=== PATIENT | female | born 1960 | race Caucasian/White ===

== ENCOUNTER → 2017-07-11 04:59 | Emergency (ER) | payer MEDICARE ==
[2017-07-11 05:57] LABS: ABS Basophils 0.1 10^3/ul (0-0.2); ABS Eosinophils 0.2 10^3/ul (0-0.6); ABS Lymphocytes 2.5 10^3/ul (1.0-4.8); ABS Monocytes 0.5 10^3/ul (0-0.8); ABS Neutrophils 3.8 10^3/ul (1.5-7.7); ABS Nucleated RBC 0 10^3/ul; Eosinophil % 2.6 % (0-6); Hematocrit 36 % (35-47); Hemoglobin 12.1 g/dl (12.0-16.0); Lymphocyte % 35.1 % (25-47); Mean Corpuscular HGB Conc 34 g/dl (31-36); Mean Corpuscular Hemoglobin 30 pg (27-31); Mean Corpuscular Volume 87 fL (80-97); Mean Platelet Volume 8.2 um3 (7.4-10.4); Nucleated Red Blood Cells % 0.1; Platelet Count 272 10^3/ul (150-450); Red Blood Count 4.07 10^6/ul (4.0-5.4); Red Cell Distribution Width 14 % (10.5-15)
[2017-07-11 06:19] LABS: EGFR Non-African American 104.3 (>60)
--- NOTE | 2017-07-11 08:23 | RAD ---
HISTORY: Chest pain COMPARISONS: July 01, 2015 VIEWS: 4: Frontal dual-energy and lateral views of the chest. FINDINGS: CARDIOMEDIASTINAL SILHOUETTE: The cardiomediastinal silhouette is normal. ITZEL: The itzel are normal. PLEURA: There is elevation of the right hemidiaphragm. This can be identified on earlier examinations and is stable. LUNG PARENCHYMA: The lungs are clear. ABDOMEN: The upper abdomen is clear. There is no subphrenic gas. BONES AND SOFT TISSUES: No bone or soft tissue abnormalities are noted. OTHER: A left-sided AICD is noted. IMPRESSION: STABLE ELEVATION OF THE RIGHT HEMIDIAPHRAGM. NO ACTIVE CARDIOPULMONARY DISEASE.
[2017-07-11 12:33] VITALS: BP 116/70
--- NOTE | 2017-07-13 21:20 | ED ---
Carlos Stiles Sixian, scribed for Kwabena Childers MD on 07/11/17 at 0530 . Shortness of Breath - HPI Summary HPI Summary: This patient is a 57 year old F BIBA to ED with a chief complaint of SOB since 0200 today. The patient rates the pain 5/10 in severity. Symptoms aggravated and alleviated by nothing. Patient reports chest pressure. Patient denies nausea , dizziness, abdominal pain. Pt had taken x2 nitro at home without any relief. EMS administered 324mg ASA. - History of Current Complaint Chief Complaint: EDChestPainROMI Time Seen by Provider: 07/11/17 05:22 Hx Obtained From: Patient Onset/Duration: Gradual Onset, Lasting Hours, Still Present Timing: Constant Current Severity: Moderate - 5/10 Alleviating Factors: Nothing Associated Signs & Symptoms: Chest Pain Unrelated to Cough - Allergy/Home Medications Allergies/Adverse Reactions: Allergies Allergy/AdvReac Type Severity Reaction Status Date / Time morphine Allergy Hallucinati Verified 07/11/17 05:28 ons Home Medications: Home Medications Cyanocobalamin TAB* [Vitamin B12 TAB*] 500 mcg PO DAILY 07/11/17 [History Confirmed 07/11/17] PMH/Surg Hx/FS Hx/Imm Hx Endocrine/Hematology History: Denies: Hx Diabetes Cardiovascular History: Reports: Hx Angina, Hx Auto Implanted Cardiovert Defib, Hx Coronary Artery Disease, Hx Hypercholesterolemia, Hx Hypertension, Hx Myocardial Infarction, Hx Pacemaker/ICD, Hx Syncope History: Denies: Hx Renal Disease Musculoskeletal History: Reports: Hx Back Problems, Hx Tendonitis Sensory History: Reports: Other Sensory Impairments - pt stated she cannot see very well Opthamlomology History: Reports: Other Sensory Impairments - pt stated she cannot see very well Neurological History: Reports: Other Neuro Impairments/Disorders Psychiatric History: Reports: Hx Depression - Surgical History Surgery Procedure, Year, and Place: DEFIBRILATOR 2004, LEG BYPASS GRAFT Hx Anesthesia Reactions: No Infectious Disease History: No Infectious Disease History: Denies: Traveled Outside the [place] in Last 30 Days - Family History Known Family History: Positive: Cardiac Disease - CAD - Social History Alcohol Use: None Hx Substance Use: No Substance Use Type: Reports: None Substance Use Comment - Amount & Last Used: days ago Hx Tobacco Use: Yes Smoking Status (MU): Former Smoker Amount Used/How Often: 1PPD Length of Time of Smoking/Using Tobacco: 12 years Review of Systems Positive: Chest Pain Positive: Shortness Of Breath Negative: Abdominal Pain, Nausea Neurological: Negative - dizziness All Other Systems Reviewed And Are Negative: Yes Physical Exam - Summary Physical Exam Summary: Appearance: Well-appearing, Well-nourished, lying in bed comfortably Skin: Warm, dry, no obvious rash Eyes: sclera anicteric, no conjunctiva pallor ENT: mucous membranes moist, pharynx appears normal Neck: Supple, nontender Respiratory: Clear to auscultation, no signs of respiratory distress Cardiovascular: Normal S1, S2. No murmurs. Normal distal pulses in tibial and radial bilaterally. Abdomen: Soft, nontender, normal active bowel sounds present Musculoskeletal: Normal, Strength/ROM Intact Neurological: A&Ox3, awake and alert, mentation is normal, speech is fluent and appropriate Psychiatric: affect is normal, does not appear anxious or depressed Triage Information Reviewed: Yes Vital Signs On Initial Exam: Initial Vitals Pulse Resp BP Pulse Ox 65 19 132/78 94 07/11/17 05:08 07/11/17 05:08 07/11/17 05:08 07/11/17 05:08 Vital Signs Reviewed: Yes Diagnostics - Vital Signs Vital Signs Temp Pulse Resp BP Pulse Ox 07/11/17 05:22 64 12 94 07/11/17 05:18 98.9 F 60 16 132/78 96 07/11/17 05:08 65 19 132/78 94 - Laboratory Lab Results: Lab Results 07/11/17 07/11/17 07/11/17 Range/Units 05:37 05:37 05:43 WBC 7.0 (3.5-10.8) 10^3/ul RBC 4.07 (4.0-5.4) 10^6/ul Hgb 12.1 (12.0-16.0) g/dl Hct 36 (35-47) % MCV 87 (80-97) fL MCH 30 (27-31) pg MCHC 34 (31-36) g/dl RDW 14 (10.5-15) % Plt Count 272 (150-450) 10^3/ul MPV 8.2 (7.4-10.4) um3 Neut % (Auto) 53.5 (38-83) % Lymph % (Auto) 35.1 (25-47) % Gooding % (Auto) 7.6 H (0-7) % Eos % (Auto) 2.6 (0-6) % Baso % (Auto) 1.2 (0-2) % Absolute Neuts (auto) 3.8 (1.5-7.7) 10^3/ul Absolute Lymphs (auto) 2.5 (1.0-4.8) 10^3/ul Absolute Monos (auto) 0.5 (0-0.8) 10^3/ul Absolute Eos (auto) 0.2 (0-0.6) 10^3/ul Absolute Basos (auto) 0.1 (0-0.2) 10^3/ul Absolute Nucleated RBC 0 10^3/ul Nucleated RBC % 0.1 D-Dimer, Quantitative < 200 (Less Than 230) ng/mL Sodium 138 L (139-145) mmol/L Potassium 3.7 (3.5-5.0) mmol/L Chloride 108 (101-111) mmol/L Carbon Dioxide 24 (22-32) mmol/L Anion Gap 6 (2-11) mmol/L BUN 12 (6-24) mg/dL Creatinine 0.59 (0.51-0.95) mg/dL Est GFR ( Amer) 134.2 (>60) Est GFR (Non-Af Amer) 104.3 (>60) BUN/Creatinine Ratio 20.3 H (8-20) Glucose 109 H (70-100) mg/dL Calcium 8.7 (8.6-10.3) mg/dL Total Bilirubin 0.60 (0.2-1.0) mg/dL AST 16 (13-39) U/L ALT 21 (7-52) U/L Alkaline Phosphatase 108 H (34-104) U/L Troponin I 0.00 (<0.04) ng/mL Total Protein 6.4 (6.4-8.9) g/dL Albumin 3.6 (3.2-5.2) g/dL Globulin 2.8 (2-4) g/dL Albumin/Globulin Ratio 1.3 (1-3) // Range/Units 08:28 WBC (3.5-10.8) 10^3/ul RBC (4.0-5.4) 10^6/ul Hgb (12.0-16.0) g/dl Hct (35-47) % MCV (80-97) fL MCH (27-31) pg MCHC (31-36) g/dl RDW (10.5-15) % Plt Count (150-450) 10^3/ul MPV (7.4-10.4) um3 Neut % (Auto) (38-83) % Lymph % (Auto) (25-47) % Gooding % (Auto) (0-7) % Eos % (Auto) (0-6) % Baso % (Auto) (0-2) % Absolute Neuts (auto) (1.5-7.7) 10^3/ul Absolute Lymphs (auto) (1.0-4.8) 10^3/ul Absolute Monos (auto) (0-0.8) 10^3/ul Absolute Eos (auto) (0-0.6) 10^3/ul Absolute Basos (auto) (0-0.2) 10^3/ul Absolute Nucleated RBC 10^3/ul Nucleated RBC % D-Dimer, Quantitative (Less Than 230) ng/mL Sodium (139-145) mmol/L Potassium (3.5-5.0) mmol/L Chloride (101-111) mmol/L Carbon Dioxide (22-32) mmol/L Anion Gap (2-11) mmol/L BUN (6-24) mg/dL Creatinine (0.51-0.95) mg/dL Est GFR ( Amer) (>60) Est GFR (Non-Af Amer) (>60) BUN/Creatinine Ratio (8-20) Glucose (70-100) mg/dL Calcium (8.6-10.3) mg/dL Total Bilirubin (0.2-1.0) mg/dL AST (13-39) U/L ALT (7-52) U/L Alkaline Phosphatase (34-104) U/L Troponin I 0.00 (<0.04) ng/mL Total Protein (6.4-8.9) g/dL Albumin (3.2-5.2) g/dL Globulin (2-4) g/dL Albumin/Globulin Ratio (1-3) Result Diagrams: 07/11/17 05:37 07/11/17 05:37 Lab Statement: Any lab studies that have been ordered have been reviewed, and results considered in the medical decision making process. - EKG 0509 Cardiac Rate: NL EKG Rhythm: Sinus Rhythm - [address] Segment: Non-Specific - P waves, QRS complex, and T waves are within normal limits EKG Interpretation: T waves and intervals are normal, no ischemic changes. Course/Dx - Diagnoses Provider Diagnoses: Chest pain Discharge - Sign-Out/Discharge Documenting (check all that apply): Sign-Out Patient - Patient is signed out to Dr. Ortiz, pending disposition, awaiting chest PA and LAT. Signing out patient TO: Kwabena Ortiz - Discharge Plan Condition: Stable Disposition: HOME Patient Education Materials: Chest Pain (ED) Referrals: Mira Lindsey MD [Primary Care Provider] - 3 Days Additional Instructions: Follow up with your primary care physician in three days. RETURN TO THE EMERGENCY DEPARTMENT FOR CHANGING OR WORSENING SYMPTOMS. - Billing Disposition and Condition Condition: STABLE Disposition: HOME The documentation as recorded by the Carlos berry Sixian accurately reflects the service I personally performed and the decisions made by , Kwabena Childers MD.
== END | disposition home or self-care (01) ==
LOC: ED 04:59
DX: R07.9 Chest pain, unspecified (principal); Z87.891 Personal history of nicotine dependence; Z95.810 Presence of automatic (implantable) cardiac defibrillator; I25.10 Atherosclerotic heart disease of native coronary artery without angina pectoris; E78.00 Pure hypercholesterolemia, unspecified; I10 Essential (primary) hypertension; I25.2 Old myocardial infarction
CPT/HCPCS: 36415; 71046; 80053; 84484; 85025; 85379; 93005; 99284

== ENCOUNTER 2019-04-12 19:50 | Observation (INO) | payer MEDICARE ==
[2019-04-12 20:27] LABS: ABS Basophils 0.1 10^3/ul (0-0.2); ABS Eosinophils 0.2 10^3/ul (0-0.6); ABS Lymphocytes 2.3 10^3/ul (1.0-4.8); ABS Monocytes 0.5 10^3/ul (0-0.8); ABS Neutrophils 4.2 10^3/ul (1.5-7.7); Eosinophil % 2.5 %; Hematocrit 38 % (35-47); Lymphocyte % 31.2 %; Mean Corpuscular HGB Conc 35 g/dL (31-36); Mean Corpuscular Hemoglobin 30 pg (27-31); Mean Corpuscular Volume 87 fL (80-97); Mean Platelet Volume 8.1 fL (7.4-10.4); Nucleated Red Blood Cells % 0.2; Platelet Count 254 10^3/uL (150-450); Red Blood Count 4.32 10^6 /uL (3.70-4.87); Red Cell Distribution Width 13 % (10-15); White Blood Count 7.3 10^3/uL (3.5-10.8)
[2019-04-12 20:33] LABS: INR 0.95 (0.82-1.09)
--- OUTSIDE RECORDS SUMMARY | 2019-04-12 20:35 | XMS REPORT | Summary of Care ---
:1960 Author Organization [facility] Address [address] [address] Care Team Providers Name Role Phone BeltranMira zaragoza Primary Care Provider Reason for Referral MRI/CAT/PET Scan (Routine) Status Reason Specialty Diagnoses / Referred By Referred To Procedures Contact Contact Authorized Diagnoses PAD (peripheral artery disease) ([facility]) Pauline Cooper PA Procedures VL BODY MEASURE GERMAN MULTIPLE [address] [id number] Reason for Visit Reason Comments Follow Up 6 mo f/u, hx of CAD, patient concerned about area of skin on her chest and change in temperature of left foot. Encounter Details Date Type Department Care Team Description 03/17/2019 Office Visit Pauline Sandra PA PAD (peripheral artery disease) ([facility]) (Primary Dx); Cardiology [address] [facility] [place] (ventricular tachycardia) ([facility]); [address] [facility] [address] [address] Coronary artery disease involving navajo coronary artery of navajo heart with other form of angina pectoris ([facility]) [place] [address] [phone] Allergies Active Allergy Reactions Severity Noted Date Comments Atenolol 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 nitroglycerin Dissolve 1 tablet 50 Tab 3 02/01/2016 Active (NITROSTAT) 0.4 MG under the tongue Sublingual SL Tab every 5 minutes as needed for chest pain as directed B Complex Vitamins Take 1 Tab by 90 Tab 3 02/25/2016 Active (VITAMIN B COMPLEX) mouth DAILY. Oral Tab Multiple Vitamin Take 1 Tab by 90 Tab 3 02/25/2016 Active (MULTI-VITAMIN) Oral mouth DAILY. Tab ezetimibe (ZETIA) 10 MG Take 1 Tab by 90 Tab 3 03/13/2018 Active Oral TabIndications: mouth DAILY. Coronary artery disease involving navajo coronary artery of navajo heart without angina pectoris citalopram (CELEXA) 20 TAKE 1 AND 1/2 135 Tab 3 04/15/2018 Active MG Oral TabIndications: TABLETS BY MOUTH Other depression DAILY Oxybutynin Chloride 15 TAKE 1 TABLET BY 90 Tab 3 04/15/2018 Active MG Oral TABLET SR 24 MOUTH DAILY HRIndications: PAD (peripheral artery disease) ([facility]) clopidogrel (PLAVIX) 75 TAKE 1 TABLET BY 90 Tab 3 04/15/2018 Active MG Oral TabIndications: MOUTH DAILY Coronary artery disease involving navajo coronary artery of navajo heart without angina pectoris carvedilol (COREG) TAKE 1 TABLET BY 180 Tab 3 04/15/2018 Active 3.125 MG Oral Tab MOUTH TWICE A DAY Rosuvastatin Calcium TAKE 1 TABLET BY 90 Tab 3 01/08/2019 Active (CRESTOR) 40 MG Oral MOUTH DAILY TabIndications: Lipid disorder documented as of this encounter (statuses as of 03/17/2019) Active Problems Problem Noted Date [place] (ventricular tachycardia) 03/12/2018 Coronary artery disease involving navajo coronary artery of navajo heart 03/12 Left hemiparesis 07/13/2017 Hx of completed stroke 07/13/2017 ICD (implantable cardioverter-defibrillator) in place 07/13/2017 Elective replacement indicated for implantable cardioverter-defibrillator 09/2016 (ICD) BMI 30.0-30.9,adult 11/24/2011 Overview: This patient's BMI has been calculated and is above average, and BMI management plan is completed. General patient education discussion including: obesity-related excess mortality Old OR (myocardial infarction) 09/05/2011 Ischemic cardiomyopathy 09/05/2011 Ventricular fibrillation 02/08/2011 Overview: TTE 02/25/03: FINAL IMPRESSION: . Moderately depressed left ventricular systolic function with an estimated jection fraction of 30% to 35%, with wall motion abnormalities as identified n the test. . Normal right vent ricular function. . No significant valvular disease Cerebral infarction 07/29/2010 Overview: 07/06 [facility] - [facility] stroke with left face, arm, leg weakness- right gaze Carotid artery disease 07/29/2010 Overview: right Carotid artery - 100% blocked - On plavix for this PAD (peripheral artery disease) 07/29/2010 Overview: By pass by Dr Sullivan Carotid - Previous lower extremety bypass GERMAN 03/16 - mild occlusive disease- CAD (coronary artery disease) 07/29/2010 Overview: Stenting of the RCA 2002 [address] EF 50 % at [facility] 07/06 inferior wall hypokinesis - seen by Dr Gutierrez- Has pacer/ defib - needs prn follow up Cardiac arrest 02/27/2003 documented as of this encounter (statuses as of 03/17/2019) Resolved Problems Problem Noted Date Resolved Date Defibrillator activation 07/29/2010 09/13/2016 Overview: Sudden Other specified cardiac dysrhythmias(427.89) 05/25/2003 09/13/2016 documented as of this encounter (statuses as of 03/17/2019) Immunizations Name Administration Dates Next Due DTAP Vaccine 07/08/2010 Influenza (IM) Preservative Free 11/04/2018, 12/06/2017, 11/03/2016, 12/02/2012, 12/20/2011, 11/24/2011, 12/08/2010 Influenza (IM) W/Pres 02/25/2016, 11/18/2014 MMR VACCINE 07/02/2018 (Deferred: Other) PNEUMOCOCCAL POLYSACCHARIDE VACCINE 12/08/2010 Pneumococcal Conjugate(13 Valent) 03/12/2018 documented as of this encounter Social History Tobacco Use Types Packs/Day Years Used Date Former Smoker Cigarettes 1 20 Quit: 02/26/2003 Smokeless Tobacco: Never Used Comments: quit 2003 Alcohol Use Drinks/Week oz/Week Comments Yes 0 Standard drinks or equivalent 0.0 occassional. " no more then 1 beer per day " Sex Assigned at Date Recorded Not on file Job Start Date Occupation Industry Not on file Not on file Not on file Travel History Travel Start Travel End No recent travel history available. documented as of this encounter Last Filed Vital Signs Vital Sign Reading Time Taken Comments Blood Pressure 130/66 03/17/2019 3:45 PM EST Pulse 55 03/17/2019 3:45 PM EST Temperature - - Respiratory Rate - - Oxygen Saturation 98% 03/17/2019 3:45 PM EST Inhaled Oxygen Concentration - - Weight 82.3 kg (181 lb 6.4 oz) 03/17/2019 3:45 PM EST Height - - Body Mass Index 33.18 11/04/2018 10:48 AM EDT documented in this encounter Patient Instructions Patient InstructionsPauline Cooper PA - 03/17/2019 3:40 PM EST I will call you tomorrow and let you know what Dr. Syed thinks about increasing your medications Get the ABIs done to check the blood flow in your legs General Instructions: ? I Strongly recommended to take your medication regularly as prescribed and DO NOT stop any medications without consulting a physician. ? Please follow a Low-salt, low carbohydrate diet. ? Keep yourself physically active if you are able. ? Try to do a moderate level exercise (Brisk walking), at least 150 minutes per week or 30-60 minutes a day for modest weight loss. ? Always keep a watch on your blood pressure and cholesterol. Keep the blood pressure between <130/80 mmHg and LDL cholesterol level < 70mg/dl if you have a history of coronary artery disease,or <100 mg/dl if you do not ? Please do not hesitate to call sooner than scheduled if there is a worsening of symptoms or development of new symptoms ? Follow up in 6 months or sooner, if necessary. ? Medication changes today: None. ? Bloodwork to be checked: None. documented in this encounter Progress Notes Pauline Cooper PA - 03/17/2019 3:40 PM EST Sally Cardiology Note Patient: Yessy Qiu Date of : 1960 Date of Service: 03/17/2019 REFERRING PRACTITIONER: Mira Lindsey PRIMARY CARE PROVIDER: Mira Lindsey Chief Complaint: Chief Complaint Patient presents with Follow Up 6 mo f/u, hx of CAD, patient concerned about area of skin on her chest and change in temperature of left foot. History of Present Illness: We had the pleasure of seeing Yessy Qiu today. She is a 58-y.o. female with CAD s/p RCA PCI 2002, ischemic cardiomyopathy, cardiac arrest s/p ICD for inducible polymorphic VT, obesity, CVA in 2010, PAD with R carotid chronic occlusion and prior LE bypass. She presents today for a 6 month follow up feeling well. She feels her left foot is slightly colder than her right one for the last week. She does not wear shoes on the left side since her stroke, because the shoe usually falls off. No pain in the foot, but she has limited sensation on the left lower extremity. It does not limit her mobility and she continues to walk with a cane. She never completed her sleep study, but feels her daytime somnolence has improved. Constitutional: Patient denies fever, febrile illness. Denies fatigue. Neurologic: Denies transient ischemic attack or cerebrovascular accident signs or symptoms. Denies syncope or presyncopal episodes. Cardiovascular: denies chest pain, denies palpations, denies lower extremity edema. Respiratory: denies shortness of breath, Denies PND, denies orthopnea. Gastrointestinal: Denies melena. Genitourinary: Denies hematuria Musculoskeletal: denies claudication. All other remaining systems are negative. Except that stated above in history of present illness Cardiac Studies: ICD Interrogation 02/14/2019: Ventricular sensing is seen at the time of this transmission. There was one episode consistent with ventricular tachycardia lasting 6 seconds with a rate of 167bpm. There were 7 episodes with a high ventricular rate that were consistent with paroxysmal atrial tachycardia. Heart rates ranged between 60-90 bpm the majority of the time. Implantable CardioverterDefibrillator function appears normal. ICD Interrogation 10/10/2018: This visit was performed remotely. Ventricular sensing was seen at the time of this transmission. There was one episode of non-sustained ventricular tachycardia at a rate of 160 bpm in July. Heart rates range between 50 - 90 bpm the majority of the time. Implantable Cardioverter Defibrillator function appears normal. ICD Interrogation 06/25/18: This visit was performed remotely. Ventricular sensing was seen at the time of this transmission. There have been no episodes of ventricular tachycardia. There was one episode labeled VT, two episodes labeled non-sustained event and four episodes labeled SVT at rates between 141-162 bpm with the longest lasting 3 minutes. The EGMs for these episodes all appear to be SVT. Heart rates range between 50-90 bpm the majority of the time. Implantable Cardioverter Defibrillator function appears normal. Bilateral ABIs 03/19/18: IMPRESSIONS: 57 year old female with stroke 2010, no use of left arm or leg. Diminished pulses, PAD ABIS and PVRs of the bilateral lower extremities indicates bilateral mild extremity occlusive arterial disease. PVRs of the bilateral thighs, calves, ankles, metatarsal and toe digits are mild. Biphasic right DP/PT, Biphasic left PT, non audible left DP. Right GERMAN: .83, Left GERMAN: .76 Regadenoson SPECT 08/24/17: IMPRESSION: 1. Findings concerning for a small area of reversible ischemia involving the basal inferior and inferolateral segments. 2. No fixed perfusion defect suggestive of myocardial scar. 3. Normal-sized left ventricle with preserved systolic function with ejection fraction of likely >70%. See above comment. 4. No evidence of transient ischemic dilation. 5. No focal or regional wall motion abnormalities. TTE 08/24/17: FINAL IMPRESSION: Concentric LV remodeling with normal left atrial size. Normal LV systolic function with isolated basal inferior hypokinesis; estimated LVEF 55-60%. Grade I (mild) diastolic dysfunction. Normal RA size. Mild RV enlargement with preserved contractility. No structurally or hemodynamically significant valvular disease. No pericardial effusion. Compared to prior echo report 11/08/2011, mild diastolic dysfunction, isolated basal inferior hypokinesis, and mild RV enlargement are now noted. ICD Interrogation 06/07/17: This visit was performed remotely. Ventricular sensing was seen at the time of this transmission. There have been no episodes of ventricular tachycardia. Implantable Cardioverter Defibrillator functionappears normal. Regadenoson SPECT 09/11/2013: -Small apical infarct with mild melani-infarct ischemia -LVEF 73% Left Heart Cath 02/24/2003: CONCLUSION: 1. Two-vessel coronary disease with mild plaquing of the left anterior descending, significant stenosis of a circumflex marginal branch too small for percutaneous or surgical revascularization, right coronary artery occlusion with diffuse lengthy segment of disease, excellent angiographic result after multiple stent placements with adjunctive ReoPro. 2. Moderately impaired left ventricular systolic function. At this point it is uncertain how much of this is due to stunning versus infarcted myocardium. 3. The right femoral artery was not sealed, sheath was left for blood gas monitoring. Patient Active Problem List Diagnosis Cardiac arrest (HCC) Cerebral infarction (HCC) Carotid artery disease (HCC) PAD (peripheral artery disease) (HCC) CAD (coronary artery disease) Ventricular fibrillation (HCC) Old OR (myocardial infarction) Ischemic cardiomyopathy BMI 30.0-30.9,adult Elective replacement indicated for implantable cardioverter- defibrillator (ICD) Left hemiparesis (HCC) Hx of completed stroke ICD (implantable cardioverter-defibrillator) in place VT (ventricular tachycardia) (HCC) Coronary artery disease involving navajo coronary artery of navajo heart Past Medical History: Diagnosis Date ASHD (arteriosclerotic heart disease) Cerebral thrombosis without mention of cerebral infarction Hyperlipidemia Ischemic cardiomyopathy Myocardial infarction (HCC) 2002 PLACED DEFIBULATOR/PACEMAKER Personal history of contraception, presenting hazards to health PVD (peripheral vascular disease) ([facility]) VF (ventricular fibrillation) ([facility]) Past Surgical History: Procedure Laterality Date CARDIAC CATH KS INS NEW/RPLCMT PRM PACEMAKR W/TRANS ELTRD ATRIAL KS RMVL IMPLTBL DFB PLSE GEN W/REPL PLSE GEN 1 LEAD Left 10/03/2016 Procedure: INSERTION OF ICD GENERTOR CHANGE; Surgeon: Fausto Jones MD; Location: 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 B Complex Vitamins (VITAMIN B COMPLEX) Oral Tab Take 1 Tab by mouth DAILY. carvedilol (COREG) 3.125 MG Oral Tab TAKE 1 TABLET BY MOUTH TWICE A DAY citalopram (CELEXA) 20 MG Oral Tab TAKE 1 AND 1/2 TABLETS BY MOUTH DAILY clopidogrel (PLAVIX) 75 MG Oral Tab TAKE 1 TABLET BY MOUTH DAILY ezetimibe (ZETIA) 10 MG Oral Tab Take 1 Tab by mouth DAILY. Multiple Vitamin (MULTI-VITAMIN) Oral Tab Take 1 Tab by mouth DAILY. nitroglycerin (NITROSTAT) 0.4 MG Sublingual SL Tab Dissolve 1 tablet under the tongue every 5minutes as needed for chest pain as directed Oxybutynin Chloride 15 MG Oral TABLET SR 24 HR TAKE 1 TABLET BY MOUTH DAILY Rosuvastatin Calcium (CRESTOR) 40 MG Oral Tab TAKE 1 TABLET BY MOUTH DAILY No current facility-administered medications for this visit. Family History Problem Relation Age of Onset Stroke Mother Hypertension Mother Heart Father Hypertension Father High Cholesterol Father Arthritis Sister Heart Sister Asthma Sister Social History Socioeconomic History Marital status: Spouse name: Not on file Number of children: Not on file Years of education: Not on file Highest education level: Not on file Occupational History Not on file Social Needs Financial resource strain: Not on file Food insecurity Worry: Not on file Inability: Not on file Transportation needs Medical: Not on file Non-medical: Not on file Tobacco Use Smoking status: Former Smoker Packs/day: 1.00 Years: 20.00 Pack years: 20.00 Types: Cigarettes Last attempt to quit: 02/26/2003 Years since quittin.0 Smokeless tobacco: Never Used Tobacco comment: quit 2003 Substance and Sexual Activity Alcohol use: Yes Alcohol/week: 0.0 standard drinks Comment: occassional. " no more then 1 beer per day " Drug use: Yes Types: Marijuana Comment: occassional Sexual activity: Not Currently Lifestyle Physical activity Days per week: Not on file Minutes per session: Not on file Stress: Not on file Relationships Social connections Talks on phone: Not on file Gets together: Not on file Attends bahai service: Not on file Active member of club or organization: Not on file Attends meetings of clubs or organizations: Not on file Relationship status: Not on file Intimate partner violence Fear of current or ex partner: Not on file Emotionally abused: Not on file Physically abused: Not on file Forced sexual activity: Not on file Other Topics Concern Not on file Social History Narrative Living in [facility] - 2 daughters Does her own laundry / cooking- - Physical Exam: Vitals: 03/17/19 1545 BP: 130/66 BP Location: Right arm Patient Position: Sitting Pulse: 55 SpO2: 98% Weight: 181 lb 6.4 oz (82.3 kg) Body mass index is 33.18 kg/m. General: Well nourished, alert 58-y.o. female in NAD in a wheelchair HEENT: anicteric, MMM, no E/E OP, conj pink Neck: No carotid bruits CV: RRR, normal s1/s2, no appreciable murmurs, rubs, or gallops Pulm: CTA bilaterally without wheezes, rhonchi, or rales. No increased work of breathing. Abd: soft, NT, ND, +BS. No appreciable pulsatile masses or bruits. Ext: No lower extremity edema, left foot is slightly colder to touch Neuro: no gross focal deficits Skin: no visible lesions Labs: Lab Results Component Value Date NA 136 10/02/2018 K 4.0 10/02/2018 CL 102 10/02/2018 CO2 26 10/02/2018 GLUCOSE 102 (H) 10/02/2018 BUN 10 10/02/2018 CREATININE 0.6 (L) 10/02/2018 CALCIUM 9.2 10/02/2018 TP 7.4 10/02/2018 ALBUMIN 4.1 10/02/2018 AST 50 (H) 10/02/2018 ALT 67 (H) 10/02/2018 ALK 106 10/02/2018 TBILI 1.2 (H) 10/02/2018 EGFR >60 10/02/2018 No results found for: BNP Lab Results Component Value Date CHOL 111 10/02/2018 TRIG 101 10/02/2018 HDL 37 (L) 10/02/2018 LDL 54 10/02/2018 LDLHDLRATIO 1.5 10/02/2018 CHOLHDLRATIO 3.0 10/02/2018 Assessment & Plan: Yessy Qiu is a 58-y.o. female with ICD-9-CM ICD-10-CM 1. PAD (peripheral artery disease) ([facility]) 443.9 I73.9 VL BODY MEASURE GERMAN MULTIPLE 2. VT (ventricular tachycardia) ([facility]) 427.1 I47.2 3. Coronary artery disease involving navajo coronary artery of navajo heart with other form of angina pectoris ([facility]) 414.01 I25.118 413.9 1. Polymorphic VT s/p ICD placement: Her recent pacemaker interrogation showed VT lasting 6 seconds Will discuss with Dr. Syed further and consider increasing her Coreg 2. Coronary Artery Disease, s/p RCA PCI: No current anginal symptoms. I recommend the following medical regimen: Antiplatelets: Continue aspirin 81 mg daily for life, and Plavix indefinitely given her fairlysignificant PAD. Statin: LDL 54 in September 2018 on 40mg of Crestor and Zetia Beta-asia: Cont low dose carvedilol. KARLA-inhibitor/ARB: Not on, but BP OK. 3. PAD: Her ABIs in February 2018 were only mildly abnormal. Her left foot does feel slightly colder to touch, but she also was not wearing a shoe on her left foot when she came to the office. She has limited sensation in the foot due to CVA. Continue DAPT and statin as well as exercise therapy. Will re-check ABIs and may re-refer back to vascular pending results Thank you for allowing me to participate in the care of Yessy Qiu. We will plan on f/u in our office in 6 months or sooner prn. If you have any questions or concerns please feel free to call our office. MEKA Mcintosh, 03/17/2019, 16:19 documented in this encounter Plan of Treatment Date Type Specialty Care Team Description 03/25/2019 Ancillary Procedure Radiology 05/06/2019 Office Visit Internal Medicine Mira Lindsey MD [address] [place] [address] [phone] 06/16/2019 [facility] Arrhythmia Center 09/15/2019 Office Visit Cardiology Pauline Cooper PA [address] [address] Name Type Priority Associated Diagnoses Order Schedule VL BODY MEASURE GERMAN Imaging Routine PAD (peripheral artery Expected: 2019, MULTIPLE disease) (HCC) Expires: 05/15/2020 Health Maintenance Due Date Last Done Comments MEDICARE ANNUAL WELLNESS 1960 VISIT Colonoscopy 2008 ZOSTER IMMUNIZATION SERIES 2008 (1 of 2) MAMMOGRAM (SCREENING) 12/14/2018 12/14/2017, 12/08/2010 DEPRESSION SCREENING 03/12/2019 03/12/2018 DIABETES SCREENING 10/03/2019 10/02/2018, 03/05/2018, 01/29/2017, Additional history exists LIPID DISORDER SCREENING 01/09/2020 01/08/2019, 10/02/2018, 03/05/2018, Additional history exists DTaP/Tdap/Td Vaccines (2 - 07/08/2020 07/08/2010 Tdap) PNEUMOCOCCAL 0-64 YRS Completed 03/12/2018, 12/08/2010 INFLUENZA VACCINE Completed 11/04/2018, 12/06/2017, 11/03/2016, Additional history exists HEPATITIS A IMMUNIZATION Aged Out No longer eligible SERIES based on patient's age to complete this topic HPV IMMUNIZATION SERIES Aged Out No longer eligible based on patient's age to complete this topic MENINGOCOCCAL VACCINE IMM Aged Out No longer eligible based on patient's age to complete this topic documented as of this encounter Implants Implanted Type Area Hand Pleater Device Shelf Model / Identifier Expiration Serial / Date Lot Pete Spencer [id number] - [id number] Left: [employer], 2017 [id number] / Implanted: Qty: 1 on 10/03/2016 by Fausto Jones MD at [facility] [id number] / documented as of this encounter Results Not on filedocumented in this encounter Visit Diagnoses Diagnosis PAD (peripheral artery disease) (HCC) Peripheral vascular disease, unspecified VT (ventricular tachycardia) (HCC) Paroxysmal ventricular tachycardia Coronary artery disease involving navajo coronary artery of navajo heart with other form of angina pectoris (HCC) documented in this encounter Insurance Payer Benefit Plan / Subscriber ID Effective Dates Phone Address Type Group [facility] MEDICARE [facility] MEDICARE xxxxxxxxx 2016-Present [facility] ADVANTAGE [facility]([id number]) Guarantor Name Account Type Relation to Date of Phone Billing Patient Address Yessy Qiu Personal/Family 1960 [phone] [facility] (Home) [place] [facility] [phone] [place], [place] (Work) [id number] documented as of this encounter
[2019-04-12 20:38] LABS: ALT 115 U/L (7-52); AST 71 U/L (13-39); Albumin 4.1 g/dL (3.2-5.2); Albumin/Globulin Ratio 1.5 (1-3); Alkaline Phosphatase 79 U/L (34-104); Anion Gap 6 mmol/L (2-11); BUN/Creatinine Ratio 23.5 (8-20); Blood Urea Nitrogen 16 mg/dL (6-24); CO2 Carbon Dioxide 26 mmol/L (22-32); Calcium 9.1 mg/dL (8.6-10.3); Chloride 106 mmol/L (101-111); EGFR African American 106.8 (>60); EGFR Non-African American 88.3 (>60); Globulin 2.7 g/dL (2-4); Glucose 92 mg/dL (70-100); Potassium 3.9 mmol/L (3.5-5.0); Sodium 138 mmol/L (135-145); Total Protein 6.8 g/dL (6.4-8.9)
[2019-04-12 20:43] LABS: Troponin I 0.03 ng/mL (<0.03)
--- NOTE | 2019-04-12 20:44 | ED ---
HPI Chest Pain - HPI Summary HPI Summary: Pt is a 58 y/o F w hx CVA, SD in past, defibrillator, fem-fem bypass, presenting to the ED brought in by EMS for chest pain initially onset around 1850 this date in the mid-sternal region of her chest. Patient states she was sitting in her recliner when pain started. She also reports SOB, and currently states shes experiencing palpitations but no pain. SOB worsened when lying down. She took 324mg ASA when her sx started, and was administered 1 NTG tab by EMS which helped her pain. She denies nausea, vomiting, or diaphoresis. Hx SD w/ stents. No recent cardiac-related admissions. Nuclear stress test within past 5 yrs. - History of Current Complaint Chief Complaint: EDChestPainROMI Time Seen by Provider: 04/12/19 20:08 Hx Obtained From: Patient Onset/Duration: Started Hours Ago, Still Present Timing: Constant, Lasting Hours Initial Severity: Moderate Current Severity: Mild Pain Intensity: 4 Pain Scale Used: 0-10 Numeric Chest Pain Location: Mid Sternal Chest Pain Radiates: No Character: Dyspnea at Rest, Pounding Aggravating Factor(s): Nothing Alleviating Factor(s): NTG 123 - 1, EMS Tx, OTC Meds - 324mg ASA Associated Signs and Symptoms: Positive: Chest Pain, Shortness of Breath, Palpitations. Negative: Diaphoresis, Nausea, Vomiting - Allergy/Home Medications Allergies/Adverse Reactions: Allergies Allergy/AdvReac Type Severity Reaction Status Date / Time morphine Allergy Hallucinati Verified 04/12/19 20:09 ons PMH/Surg Hx/FS Hx/Imm Hx Previously Healthy: Yes Endocrine/Hematology History: Denies: Hx Diabetes Cardiovascular History: Reports: Hx Angina, Hx Auto Implanted Cardiovert Defib, Hx Coronary Artery Disease, Hx Hypercholesterolemia, Hx Hypertension, Hx Myocardial Infarction, Hx Pacemaker/ICD, Hx Syncope History: Denies: Hx Renal Disease Musculoskeletal History: Reports: Hx Back Problems, Hx Tendonitis Sensory History: Reports: Other Sensory Impairments - pt stated she cannot see very well Opthamlomology History: Reports: Other Sensory Impairments - pt stated she cannot see very well Neurological History: Reports: Other Neuro Impairments/Disorders Psychiatric History: Reports: Hx Depression - Surgical History Surgery Procedure, Year, and Place: DEFIBRILATOR 2004, LEG BYPASS GRAFT Hx Anesthesia Reactions: No Infectious Disease History: No Infectious Disease History: Denies: Traveled Outside the [place] in Last 30 Days - Family History Known Family History: Positive: Cardiac Disease - CAD - Social History Alcohol Use: Occasionally Hx Substance Use: No Substance Use Type: Reports: Marijuana Substance Use Comment - Amount & Last Used: days ago Hx Tobacco Use: Yes Smoking Status (MU): Former Smoker Amount Used/How Often: 1PPD Length of Time of Smoking/Using Tobacco: 12 years Review of Systems Negative: Skin Diaphoresis Positive: Palpitations, Chest Pain Positive: Shortness Of Breath Negative: Vomiting, Nausea All Other Systems Reviewed And Are Negative: Yes Physical Exam - Summary Physical Exam Summary: Constitutional: Well-developed, Well-nourished, Alert. (-) Distressed Skin: Warm, Dry HENT: Normocephalic; Atraumatic Eyes: Conjunctiva normal Neck: Musculoskeletal ROM normal neck. (-) JVD, (-) Stridor, (-) Nuchal rigidity Cardio: Rhythm regular, rate normal, Heart sounds normal; Intact distal pulses; Radial pulses are 2+ and symmetric. (-) Murmur Pulmonary/Chest wall: Effort normal. (-) Respiratory distress, (-) Wheezes, (-) Rales Abd: Soft, (-) tenderness, (-) Distension, (-) Guarding, (-) Rebound Musculoskeletal: (-) Edema Lymph: (-) Cervical adenopathy Neuro: Alert, Oriented x3 Psych: Mood and affect Normal Triage Information Reviewed: Yes Vital Signs On Initial Exam: Initial Vitals Temp Pulse Resp BP Pulse Ox 97.8 F 66 16 121/73 96 04/12/19 19:55 04/12/19 19:55 04/12/19 19:55 04/12/19 19:55 04/12/19 19:55 Vital Signs Reviewed: Yes Procedures - Sedation Patient Received Moderate/Deep Sedation with Procedure: No Diagnostics - Vital Signs Vital Signs Temp Pulse Resp BP Pulse Ox 04/12/19 20:02 64 121/73 95 04/12/19 19:55 97.8 F 66 16 121/73 96 - Laboratory Lab Results: Lab Results 04/12/19 04/12/19 04/12/19 Range/Units 20:13 20:13 20:13 WBC 7.3 (3.5-10.8) 10^3/uL RBC 4.32 (3.70-4.87) 10^6 /uL Hgb 13.0 (12.0-16.0) g/dL Hct 38 (35-47) % MCV 87 (80-97) fL MCH 30 (27-31) pg MCHC 35 (31-36) g/dL RDW 13 (10-15) % Plt Count 254 (150-450) 10^3/uL MPV 8.1 (7.4-10.4) fL Neut % (Auto) 58.3 % Lymph % (Auto) 31.2 % Grady % (Auto) 7.3 % Eos % (Auto) 2.5 % Baso % (Auto) 0.7 % Absolute Neuts (auto) 4.2 (1.5-7.7) 10^3/ul Absolute Lymphs (auto) 2.3 (1.0-4.8) 10^3/ul Absolute Monos (auto) 0.5 (0-0.8) 10^3/ul Absolute Eos (auto) 0.2 (0-0.6) 10^3/ul Absolute Basos (auto) 0.1 (0-0.2) 10^3/ul Absolute Nucleated RBC 0.0 10^3/ul Nucleated RBC % 0.2 INR (Anticoag Therapy) 0.95 (0.82-1.09) Sodium 138 (135-145) mmol/L Potassium 3.9 (3.5-5.0) mmol/L Chloride 106 (101-111) mmol/L Carbon Dioxide 26 (22-32) mmol/L Anion Gap 6 (2-11) mmol/L BUN 16 (6-24) mg/dL Creatinine 0.68 (0.51-0.95) mg/dL Est GFR ( Amer) 106.8 (>60) Est GFR (Non-Af Amer) 88.3 (>60) BUN/Creatinine Ratio 23.5 H (8-20) Glucose 92 (70-100) mg/dL Calcium 9.1 (8.6-10.3) mg/dL Total Bilirubin 0.80 (0.2-1.0) mg/dL AST 71 H (13-39) U/L ALT 115 H (7-52) U/L Alkaline Phosphatase 79 (34-104) U/L Troponin I Pending Total Protein 6.8 (6.4-8.9) g/dL Albumin 4.1 (3.2-5.2) g/dL Globulin 2.7 (2-4) g/dL Albumin/Globulin Ratio 1.5 (1-3) Result Diagrams: 04/12/19 20:13 04/12/19 20:13 Lab Statement: Any lab studies that have been ordered have been reviewed, and results considered in the medical decision making process. - Radiology CXR Radiology Interpretation Completed By: ED Physician Summary of Radiographic Findings: No acute abnormality. Pending official radiology report. - EKG 1954 Cardiac Rate: NL - 60 EKG Rhythm: Sinus Rhythm ST Segment: Other Ectopy: None Summary of EKG Findings: An EKG at 1954 reveals normal sinus rhythm at 60bpm with T wave inversions in lead III, nml axis, nml intervals. No STEMI. No acute changes. No significant change from 10/22/2018. ED physician has reviewed and interpreted this EKG. Chest Pain Course/Dx - Course Course Of Treatment: 58 y/o F w hx CAD, SD, defibrillator, fem-fem bypass, CVA p /w CP. - Chest Pain DDX: The patient is well appearing, with stable vitals. Given the patient's clinical presentation, highest on differential is ACS vs atypical CP. Heart score 5 - moderate risk. Would benefit from serial trops, tele. Although less likely, differential also includes the following: -- Pneumothorax: Equal breath sounds, story inconsistent since gradual onset of symptoms. CXR shows no evidence of pneumothorax. Unlikely. --Cardiac tamponade : The history and physical are not concerning for tamponade. No Pulsus Paradoxus , no tachypnea. Unlikely. --Mediastinitis or esophageal rupture: The history is not consistent, as the patient has had no recent history of significant wretching, instrumentation, or mediastinal surgeries. Unlikely. --Aortic dissection: The patient does not describe the classical tearing chest pain radiating into the back, and the CXR does not show mediastinal widening or other signs of aortic dissection. Unlikely.. - Diagnoses Provider Diagnoses: Chest pain, Palpitations - Provider Notifications Discussed Care Of Patient With: Nato Henderson Time Discussed With Above Provider: 21:23 Instructed by Provider To: Admit As Inpatient Discharge ED - Sign-Out/Discharge Documenting (check all that apply): Patient Departure - Discharge Plan Condition: Stable Disposition: ADMITTED TO [facility] Referrals: Mira Lindsey MD [Primary Care Provider] - - Billing Disposition and Condition Condition: STABLE Disposition: Admitted to [facility] - Attestation Statements Document Initiated by Scribe: Yes Documenting Scribe: Yessy Walker Provider For Whom Terry is Documenting (Include Credential): Namrata Abebe MD. Scribe Attestation: Yessy Stiles, scribed for Namrata Abebe MD. on 04/12/19 at 2125. Scribe Documentation Reviewed: Yes Provider Attestation: The documentation as recorded by the scribeYessy accurately reflects the service I personally performed and the decisions made by Namrata laureano MD. Status of Scribe Document: Viewed
[2019-04-12] MEDS ORDERED: Atorvastatin* 80 MG TAB PO ONE (22:24)
[2019-04-12] MEDS: Metoprolol Tartrate TAB* 25 MG PO SCH (23:25)
[2019-04-12] MEDS: Enoxaparin(*) 40 MG/0.4 ML SYR SUBCUT SCH (23:25)
[2019-04-12 23:39] LABS: Troponin I 0.03 ng/mL (<0.03)
--- NOTE | 2019-04-13 03:27 | HP ---
HISTORY AND PHYSICAL: DATE OF ADMISSION: 04/12/19 ADMITTING PROVIDER: Nato Henderson MD PRIMARY CARE PROVIDER: Dr. Lindsey. OUTPATIENT PRINT MANAGER: Dr. Syed. CHIEF COMPLAINT: Chest pressure, racing heart, shortness of breath. HISTORY OF PRESENT ILLNESS: Yessy Qiu is a 58-year-old female with past medical history of CAD, status post 4 stents, 2002 (she does not know which coronary artery); V-tach, status post AICD, permanent pacemaker; CVA with residual left-sided weakness; hypertension; hyperlipidemia; peripheral vascular disease, status post fem-fem bypass. She was in her regular state of health, sitting while watching TV, when she developed sensation of chest pressure 5/10 substernally and a racing heart rate, which lasted for about 20 minutes. She took 324 mg of aspirin, was not able to open her nitroglycerin bottle but received 1 with the EMS, and had mild resolution of the chest pressure. However , here in the emergency room, the chest pressure has returned; it is now currently 4/10. Initial troponin was 0.03. She was referred to the hospitalist service for ACS rule out. EKGs showed T-wave inversion in III and borderline Q wave in V1, unchanged from prior of September 2018, normal sinus rhythm, poor R- wave progression, normal axis, normal intervals. She also was called by her registered phlebotomist part time service within the last week saying that she had the episode of elevated heart rate lasting for more than an hour. She did not notice anything , but her registered phlebotomist part time wanted her to get a sleep study, but she has never had. She does not snore, but she is relatively fatigued. She does not do much exercise given her left lower leg weakness and left arm weakness with severe contractures. She uses a cane or wheelchair at baseline. She denies any fevers , chills, nausea, vomiting, diarrhea, constipation, abdominal pain, or rash. She lives alone. PAST MEDICAL HISTORY: Myocardial infarction/CAD, with 4 stents, 2002, unknown coronary artery disease distribution; V-tach, status post AICD/permanent pacemaker; CVA with residual left-sided weakness (right middle cerebral artery infarction involving the insula cortex in the anterior temporal lobe); hypertension; hyperlipidemia; peripheral vascular disease, status post fem-fem bypass, 2003. MEDICATIONS: 1. Aspirin 81 mg daily. 2. Atorvastatin 80 mg daily. 3. Citalopram 20 mg daily. 4. Clopidogrel 75 mg daily. 5. Vitamin B12 1000 mcg p.o. daily. 6. Zetia 10 mg p.o. daily. 7. Oxybutynin 15 mg p.o. daily. 8. Lipitor 80 mg p.o. daily. 9. Multivitamin tab, 1 tab p.o. daily. ALLERGIES: No known drug allergies. FAMILY HISTORY: Her mother had a stroke at age 71; she is alive at age 84. Her father had a heart attack at age 50; he is alive at age 86. She has 2 healthy daughters. She has a younger brother, age 58, and an older sister age, 64, both healthy. SOCIAL HISTORY: The patient lives alone. She is on a social security disability. She is a former smoker about 15 years, quit in 2001. Occasional wine use. REVIEW OF SYSTEMS: A complete 14-point review of systems is negative except as per HPI. PHYSICAL EXAMINATION GENERAL APPEARANCE: No acute distress. VITAL SIGNS: Temperature 98.3, pulse rate 66, respiratory rate 17, satting 96% on room air, blood pressure 129/65. HEENT: Normocephalic, atraumatic. Pupils are equal, round, and reactive to light. Extraocular motions are intact. No scleral icterus. LUNGS: Clear to auscultation bilaterally with no wheezing, rales, or rhonchi. CARDIOVASCULAR: Regular rate and rhythm. No murmurs, rubs, or gallops. ABDOMEN: Soft, nontender, nondistended. EXTREMITIES: Warm, well perfused. No peripheral edema. NEURO: Cranial nerves demonstrate decreased facial sensation in V1 through V2, V3 on the left side. There is just a trace left nasal fold droop. Her left arm is severely contracted and has decreased sensation distally. Left leg has at least 4- /5 strength and the hip flexors has some decreased sensation. SKIN: No lesions or rashes. DIAGNOSTIC STUDIES/LAB DATA: White count 7.3, hemoglobin 13.0, hematocrit 38, platelets 254. INR 0.95. Sodium 138, potassium 3.9, chloride 106, carbon dioxide 26, BUN 16, creatinine 0.68, glucose 92, calcium 9.1. Total bili 0.8, AST 71, ALT 115, alk phos 79. Troponin 0.03. BNP 38. Albumin 4.1. Imaging: Chest x-ray, formal read is pending with no acute cardiopulmonary process per my read. She does have a pacemaker in the left upper chest. EKG at 1954 demonstrated normal sinus rhythm, borderline Q wave in V1, T-wave inversion in III, normal axis, normal intervals. ASSESSMENT AND PLAN: Yessy Qiu is a 58-year-old female with past medical history of coronary artery disease, cerebrovascular accident, right carotid disease, hypertension, hyperlipidemia, peripheral vascular disease, and ventricular tachycardia, status post automatic implantable cardioverter- defibrillator, presenting with episode of heart racing lasting about 20 minutes associated with chest pressure, 5/10, and elevated troponin 0.03, EKG with no changes. Her last stress test, she is status post here, that was back in 2013, which was low risk. My last echo was from 2012 with ejection fraction of 50% to 55% with evidence of an old inferior infarction and trace mitral regurgitation. She is being admitted for acute coronary syndrome rule out. 1. Acute coronary syndrome. Trend troponins q.3 hours until peak. Given the return of her chest pressure, I am going to put her on the nitroglycerin ointment, start metoprolol 25 mg p.o. q.6 hours, scheduled to give Lipitor 80 mg now and daily, aspirin 81 mg daily, she is status post 324 mg at home. We will try to interrogate her [employer] pacemaker to see if there was any ventricular tachycardia or other arrhythmia. We will repeat EKG tonight and again in the morning, consider Cardiology consult depending on clinical course. This is the weekend, so she can have a stress test tomorrow, but possibly on Sunday. We will continue her Zetia, hold her home Coreg. 2. Depression. Continue her citalopram 20 mg daily. 3. Cerebrovascular accident. Continue her Plavix, aspirin, and also the oxybutynin 15 mg daily; she takes it for urinary symptoms. 4. She can eat a heart-healthy diet. 5. She is a full code. Medical surrogate is her daughters, Sera Jeffrey and Milli Thompson. 6. For DVT prophylaxis, we will give her Lovenox 40 mg daily. [id number]/[facility] #: [id number] [facility]
[2019-04-13 05:39] LABS: Albumin 3.9 g/dL (3.2-5.2); Potassium 3.7 mmol/L (3.5-5.0); Total Bilirubin 0.9 mg/dL (0.2-1.0)
[2019-04-13 05:46] LABS: Albumin/Globulin Ratio 1.6 (1-3); BUN/Creatinine Ratio 22.2 (8-20); EGFR African American 116.6 (>60); EGFR Non-African American 96.4 (>60); Globulin 2.4 g/dL (2-4); HDL Cholesterol 42.7 mg/dL; Total Protein 6.3 g/dL (6.4-8.9)
[2019-04-13] MEDS: Metoprolol Tartrate TAB* 25 MG PO SCH ×4 (06:05→23:12)
[2019-04-13] MEDS: Citalopram TAB* 20 MG PO SCH (09:15)
[2019-04-13] MEDS: Clopidogrel TAB* 75 MG PO SCH (09:15)
[2019-04-13] MEDS: Cyanocobalamin TAB* 500 MCG PO SCH (09:15)
[2019-04-13] MEDS: Ezetimibe TAB* 10 MG PO SCH (09:15)
[2019-04-13] MEDS: Atorvastatin* 80 MG TAB PO SCH (09:15)
[2019-04-13] MEDS: Aspirin 81 mg CHEW TAB* 81 MG TAB.CHEW PO SCH (09:15)
[2019-04-13] MEDS: Oxybutynin XL TAB* 5 MG PO SCH (09:15)
[2019-04-13] MEDS: Nitro 2% OINT* (Nitroglycerin) 1 INCH/PAK PAK TOPICAL SCH ×2 (09:17→14:29)
[2019-04-13] MEDS ORDERED: Nitro Patch/OINT Remove TOPICAL SCH (14:00)
--- NOTE | 2019-04-13 15:46 | PN ---
Subjective Date of Service: 04/13/19 Interval History: Patient is feeling well. Patient has no chest pain, SOB, F/C, N/V, abdominal pain, diarrhea, or other pain. Patient has no other complaints. Family History: Unchanged from Admission Social History: Unchanged from Admission Past Medical History: Unchanged from Admission Objective Active Medications: Aspirin (Aspirin 81 Mg Chew Tab*) 81 mg PO DAILY [facility] Last Admin: 04/13/19 09:15 Dose: 81 mg Atorvastatin Calcium (Lipitor*) 80 mg PO DAILY [facility] Last Admin: 04/13/19 09:15 Dose: 80 mg Citalopram Hydrobromide (Celexa Tab*) 20 mg PO DAILY [facility] Last Admin: 04/13/19 09:15 Dose: 20 mg Clopidogrel Bisulfate (Plavix Tab*) 75 mg PO DAILY [facility] Last Admin: 04/13/19 09:15 Dose: 75 mg Cyanocobalamin (Vitamin B12 Tab*) 1,000 mcg PO DAILY [facility] Last Admin: 04/13/19 09:15 Dose: 1,000 mcg Ezetimibe (Zetia Tab*) 10 mg PO DAILY [facility] Last Admin: 04/13/19 09:15 Dose: 10 mg Enoxaparin Sodium (Lovenox(*)) 40 mg SUBCUT Q24H [facility] Last Admin: 04/12/19 23:25 Dose: 40 mg Metoprolol Tartrate (Lopressor Tab*) 25 mg PO Q6H [facility] Last Admin: 04/13/19 11:45 Dose: 25 mg Oxybutynin Chloride (Ditropan Xl Tab*) 15 mg PO DAILY [facility] Last Admin: 04/13/19 09:15 Dose: 15 mg Vital Signs - 8 hr 04/13/19 11:15 Temperature 98.3 F Pulse Rate 65 Respiratory 18 Rate Blood Pressure 114/63 (mmHg) O2 Sat by Pulse 97 Oximetry Oxygen Devices in Use Now: None Appearance: Patient is a 58yo female who appears stated age and is sitting in the bed in [facility]. Eyes: No Scleral Icterus, PERRLA Ears/Nose/Mouth/Throat: NL Teeth, Lips, Gums, Clear Oropharnyx, Mucous Membranes Moist Neck: NL Appearance and Movements; NL JVP, Trachea Midline Respiratory: Symmetrical Chest Expansion and Respiratory Effort, Clear to Auscultation Cardiovascular: NL Sounds; No Murmurs; No JVD, RRR, No Edema Abdominal: NL Sounds; No Tenderness; No Distention, No Hepatosplenomegaly Lymphatic: No Cervical Adenopathy Extremities: No Edema, No Clubbing, Cyanosis Skin: No Rash or Ulcers, No Nodules or Sclerosis Neurological: Alert and Oriented x 3 Result Diagrams: 04/12/19 20:13 04/13/19 04:48 Additional Lab and Data: Lab Results Assess/Plan/Problems-Billing Assessment: Patient is a 58yo female with a PMH for CVA, CAD, V-Tach, HTN, HLD, here with Chest Pain and slightly elevated troponin pending stress test. - Patient Problems (1) Chest pain Current Visit: No Status: Acute Priority: High Onset Date: 09/10/13 Code (s): R07.9 - CHEST PAIN, UNSPECIFIED SNOMED Code(s): 73180135 Comment: - With slightly elevated troponin and t wave inversions - Stress test in 2013 shows small area of reversible ischemia, but low risk - Now chest pain free, repeat stress test tomorrow. (2) History of CVA (cerebrovascular accident) Current Visit: Yes Status: Acute Code(s): Z86.73 - PRSNL HX OF TIA (TIA), AND CEREB INFRC W/O RESID DEFICITS SNOMED Code(s): 911260051 Comment: - Left sided weakness - Continue statin, zetia, aspirin and plavix. (3) History of ventricular tachycardia Current Visit: Yes Status: Acute Code(s): Z86.79 - PERSONAL HISTORY OF OTHER DISEASES OF THE CIRCULATORY SYSTEM SNOMED Code(s): 140997177117604 Comment: - S/P ICD implantation (4) CAD (coronary artery disease) Current Visit: Yes Status: Acute Code(s): I25.10 - ATHSCL HEART DISEASE OF [place] CORONARY ARTERY W/O ANG PCTRS SNOMED Code(s): 19235124 Comment: - S/P MD x4 - Management as above. (5) HTN (hypertension) Current Visit: Yes Status: Acute Code(s): I10 - ESSENTIAL (PRIMARY) HYPERTENSION SNOMED Code(s): 19784732 Comment: - Normotensive, continue metoprolol Q6H (6) HLD (hyperlipidemia) Current Visit: Yes Status: Acute Code(s): E78.5 - HYPERLIPIDEMIA, UNSPECIFIED SNOMED Code(s): 79594815 Comment: - Continue lipitor and zetia. (7) Full code status Current Visit: Yes Status: Acute Code(s): Z78.9 - OTHER SPECIFIED HEALTH STATUS SNOMED Code(s): 341397039 (8) DVT prophylaxis Current Visit: Yes Status: Acute Code(s): Z29.9 - ENCOUNTER FOR PROPHYLACTIC MEASURES, UNSPECIFIED SNOMED Code(s): 435443877 Comment: - Lovenox SubQ Status and Disposition: Observation for MILI
[2019-04-13] MEDS: Enoxaparin(*) 40 MG/0.4 ML SYR SUBCUT SCH (23:09)
[2019-04-14] MEDS: Metoprolol Tartrate TAB* 25 MG PO SCH ×2 (04:03→11:47)
[2019-04-14] MEDS ORDERED: Regadenoson* 0.4 MG/5 ML SYRINGE ONE (09:43)
[2019-04-14] MEDS: Oxybutynin XL TAB* 5 MG PO SCH (11:58)
[2019-04-14] MEDS: Ezetimibe TAB* 10 MG PO SCH (11:58)
[2019-04-14] MEDS: Atorvastatin* 80 MG TAB PO SCH (11:58)
[2019-04-14] MEDS: Citalopram TAB* 20 MG PO SCH (11:59)
[2019-04-14] MEDS: Clopidogrel TAB* 75 MG PO SCH (11:59)
[2019-04-14] MEDS: Cyanocobalamin TAB* 500 MCG PO SCH (11:59)
[2019-04-14] MEDS: Aspirin 81 mg CHEW TAB* 81 MG TAB.CHEW PO SCH (11:59)
--- NOTE | 2019-04-14 12:48 | ECHO ---
*[facility]* [place] [address] Fax #: [phone] Transthoracic Echocardiogram Patient: Yessy Qiu : 1960 Study Date: 04/14/2019 Age: 58 Gender: F HR: 65 bpm Height: 62 in /157.5 cm BSA: 1.92 m^2 Weight: 179.6 lb /81.6 kg BMI: 32.9 kg/m^2 *Roll Tube Setter: * Giovanna Ruiz [facility] *Referring Physician: * Nato Henderson *Reading Physician: * Ricky Yeager MD Indications: Chest Pain, unspecified. History: Coronary artery disease. Cerebrovascular accident. PMH: Myocardial infarction. Risk factors: Former tobacco use. Hypertension. Dyslipidemia. Labs, prior tests, procedures, and surgery: Catheterization. There was a stenosis which was treated with a stent. ICD system implantation. Conclusions Summary: - Left ventricle: Systolic function is normal. The estimated ejection fraction is 55-60%. Possible hypokinesis of the basalinferior myocardium. - Right ventricle: Systolic function is normal. - Ventricular septum: There is abnormal interventricular septal wall motion consistent with an RV pacemaker. - Mitral valve: There is no significant regurgitation. - Aortic valve: There is no evidence of stenosis. - Tricuspid valve: There is no significant regurgitation. - Compared to study of03/19/12, there is little change. Study data: Transthoracic echocardiogram. Procedure: Transthoracic echocardiography was performed. Image quality was fair. Complete 2D, spectral Doppler, and color flow Doppler. Location: Procedure room. Patient status: Inpatient. Patient room number: 451. Rhythm: Normal sinus rhythm. Findings Left ventricle: The cavity size is normal. Wall thickness is mildly increased. Systolic function is normal. The estimated ejection fraction is 55-60%. Regional wall motion abnormalities: Possible hypokinesis of the basalinferior myocardium. Left ventricular diastolic function parameters are normal. Right ventricle: The cavity size is normal. Pacer wire noted in the right ventricle. Systolic function is normal. Ventricular septum: There is abnormal interventricular septal wall motion consistent with an RV pacemaker. Left atrium: The atrium is normal in size. Right atrium: The atrium is normal in size. Pacer wire noted in right atrium. Mitral valve: The Mitral valve annulus appears calcified. The leaflets are normal thickness. There is no evidence of stenosis. There is no significant regurgitation. Aortic valve: The valve is probably trileaflet. The leaflets are normal thickness. There is no evidence of stenosis. There is no significant regurgitation. Tricuspid valve: The leaflets are normal thickness. There is no evidence of stenosis. There is no significant regurgitation. Pulmonic valve: The leaflets are normal thickness. There is no evidence of stenosis. There is no significant regurgitation. Aorta: The aortic root appears normal. The aortic arch appears normal. Pericardium: There is no significant pericardial effusion. Pulmonary arteries: Systolic pressure can not be accurately estimated. Systemic veins: Inferior vena cava: There is (< 50%) respiratory change in the IVC dimension. Measurements Left ventricle Value Ref Aortic valve Value Ref ADELFO, LAX 4.0 cm 3.8 - 5.2 Jovita diam, ED 2.0 cm ---- ESD, LAX 3.1 cm 2.2 - 3.5 Jovita diam/bsa, ED 1.0 cm/m^2 ---- FS, LAX (L) 22 % 27 - 45 Peak v, S 1.2 m/sec ---- PW, ED, LAX (H) 1.1 cm 0.6 - 0.9 VTI, S 26.2 cm ---- E', lat jovita, TDI 10.0 cm/sec >=10.0 Mean grad, S 2.5 mm Hg - --- E/e', lat jovita, 9 Peak grad, S 6.0 mm Hg ---- TDI E', med jovita, TDI (L) 6.0 cm/sec >=7.0 Mitral valve Value R ef E/e', med jovita, 15 Peak E 0.9 m/sec ---- TDI Peak A 0.61 m/sec ---- E', avg, TDI 8.0 cm/sec Decel time 233 ms ---- E/e', avg, TDI 11 <=14 Peak grad, D 3.2 mm Hg - --- Peak E/A ratio 1.49 ---- LVOT Value Ref Peak sheeba, S 0.73 m/sec Pulmonic valve Value Ref VTI, S 19.0 cm Peak v, S 0.7 m/sec ---- Peak grad, S 2 mm Hg Peak grad, S 2.0 mm Hg ---- Mean grad, S 1 mm Hg Aortic root Value Ref Ventricular septum Value Ref Root diam 2.9 cm <4.1 IVS, ED (H) 1.2 cm 0.6 - 0.9 Ascending aorta Value Ref Right ventricle Value Ref AAo AP diam, S 3.2 cm ---- ADELFO, LAX 2.9 cm AAo AP diam/bsa, S 1.6 cm/m^2 ---- ADELFO major ax, A4C (L) 2.3 cm 5.9 - 8.3 Aortic arch Value Ref Left atrium Value Ref Arch diam 2.5 cm ---- AP dim, ES 3.50 cm 2.70 - 3.80 Decending aorta Value Ref SI dim ES, LAX 3.5 cm Adams peak sheeba 0.77 m/sec ---- ML dim, A4C 3.1 cm SI dim, A4C 4.9 cm Pulmonary veins Value Ref Vol/bsa, ES, 2-p 16 ml/m^2 16 - 34 Peak v, S 0.42 m/sec ---- Peak v, D 0.39 m/sec ---- Right atrium Value Ref Peak S/D ratio 1.08 ---- SI dim, ES 3.5 cm 3.4 - 5.3 A rev duration 114 ms ---- ML dim, ES, A4C 3.2 cm 2.6 - 4.4 Estimated RAP 8 mm Hg Legend: (L) and (H) christopher values outside specified reference range. Prepared and electronically signed by Ricky Yeager MD 04/14/2019 12:48
[2019-04-14 15:55] VITALS: BP 111/56
--- NOTE | 2019-04-16 01:53 | DS ---
CC: Dr. Mira Lindsey; Dr. Ryan Syed * DISCHARGE SUMMARY: DATE OF ADMISSION: 04/12/19 DATE OF DISCHARGE: 04/14/19 PRIMARY CARE PROVIDER: Dr. Mira Lindsey. OUTPATIENT AVIONICS SYSTEM ENGINEER: Dr. Ryan Syed. MY ATTENDING WHILE IN THE HOSPITAL: Dr. Melisa Sifuentes.* (DICTATED BY MEKA DAVID) PRIMARY DISCHARGE DIAGNOSIS: Chest pain, slightly elevated troponin. SECONDARY DISCHARGE DIAGNOSES: 1. History of coronary artery disease. 2. History of ventricular tachycardia, status post coronary artery disease. 3. Cerebrovascular accident with residual left-sided weakness. 4. Hypertension. 5. Hyperlipidemia. 6. Peripheral vascular disease, status post fem-fem bypass. STUDIES DONE WHILE IN THE HOSPITAL: Chest x-ray from 04/12/19 read as elevated right hemidiaphragm, pacemaker leads in place, no definite pneumonia is noted. Transthoracic echocardiogram from 04/13/19 read as left ventricular systolic function is normal with estimated ejection fraction of 55% to 66%, possible hypokinesis of basal and inferior myocardium. Systolic function is normal. Abnormal interventricular wall motion consistent with right ventricular pacemaker, no significant dilatation, no significant stenosis. Nuclear medicine scan 04/14/19 read as no reversible change noted, old perfusion defect noted in the interior wall. Rest image of TID is 3.15 which is abnormal, end- diastolic volume is 38. Ejection fraction is 84%. Abnormal TID could be artifactual, status post low risk. MEDICATIONS AT DISCHARGE: 1. daily. 2. Clopidogrel 75 mg p.o. daily. 3. Citalopram 20 mg p.o. daily. 4. Aspirin 81 mg p.o. daily. 5. Oxybutynin 15 mg p.o. daily. 6. Lipitor 80 mg p.o. daily. 7. Zetia 10 mg p.o. daily. 8. Vitamin B12 1000 mcg p.o. daily. 9. Carvedilol 6.25 mg p.o. b.i.d. NEW MEDICATION AT DISCHARGE: Carvedilol. MEDICATIONS DISCONTINUED AT DISCHARGE: Carvedilol 3.125 mg p.o. b.i.d.. HOSPITAL COURSE: This is a brief summary of the patient's presentation. For more details, please see history and physical from Dr. Nato Henderson on 04/12/19. In brief, the patient is a 58-year-old female with past medical history significant for above presented to the emergency department with chest pressure , which was initially rated as 5/10 and lasted approximately 20 minutes. At home, she took aspirin and tried to take nitroglycerin, which helped somewhat with her chest pressure. The patient in the emergency department was started on nitro patch but her chest pressure resolved before this was started. The patient was started also on metoprolol at increased dose q.6 hours and with this , her chest pain resolved. The patient stayed in the hospital for a full day awaiting a stress test. The patient had initially an elevated troponin of 0.03 , which trended down. The patient had a cholesterol panel, which showed an LDL cholesterol of 36. The patient had no other significant laboratory abnormalities except for a slight elevation in her transaminases. The patient had no tachyarrhythmias on telemetry, thought it was reported from her primary fruit inspector that she is having tachyarrhythmia on her pacemaker on remote monitoring a week before her admission. The patient had a nuclear chemical stress test on 04/14/19, which was read as low risk as above. The patient's carvedilol was increased due to her tachyarrhythmias and for antianginal effect and was stable and amenable for discharge on 04/15/19. PHYSICAL EXAMINATION ON DISCHARGE: General: The patient is an 58-year-old female who appears stated age, sitting in bed, in no acute distress. Vital Signs: At the time of evaluation, temperature 98.1, pulse rate is 52, respiratory rate 18, oxygen saturation 93% on room air, blood pressure 111/56. HEENT: Normocephalic, atraumatic. Sclerae anicteric. No conjunctival injection. Nasal mucosa moist. Oral mucosa moist. No oropharyngeal erythema, discharge or exudate. Neck: Supple, nontender. No lymphadenopathy. No carotid bruits auscultated. No JVD. Respiratory: Clear to auscultation bilaterally. No wheezes, rales, or rhonchi. Good air exchange bilaterally. Abdomen: Soft, nontender, and nondistended. Bowel sounds present, normoactive in all 4 quadrants. No hepatosplenomegaly. No abdominal bruits auscultated. No hepatojugular reflux. Genitourinary: No suprapubic or CVA tenderness. Skin : Clean, dry, and intact. No rashes. Neuro: Left-side weakness . Alert and oriented x3. Psychiatric: Pleasant, cooperative. DISCHARGE PLAN BY PROBLEM: 1. Chest pain. The patient's chest pain may be related to tachyarrhythmia, though she was not having arrhythmia when she was in the emergency department with persistent pain. This could be related to unstable angina, but her stress test was normal. For antianginal effects and for suppression of the tachyarrhythmias, the patient's carvedilol was increased. The patient will be continued on her aspirin, Plavix, and statin. The patient's LDL looks good. The patient should follow up with her primary fruit inspector for a pacemaker interrogation as previously scheduled and monitoring. She should follow up with her primary care provider in 1 week for general medical management. The patient's minimally elevated troponin may represent demand ischemia from abovementioned possible tachyarrhythmia. 2. History of cerebrovascular accident. The patient's deficits are stable. Continue aspirin, Plavix, and statin. 3. History of ventricular tachycardia. Again, the patient had no arrhythmias while in the hospital. The patient has an ICD in place. Increase carvedilol as above. 4. Hypertension. The patient is normotensive. Increase the patient's carvedilol. 5. Elevated transaminases. The patient's transaminases are elevated for unknown reasons, likely related to fatty liver disease. It should be monitored outpatient. 6. Disposition, home. 7. The patient's condition, stable. TIME SPENT: Approximately 60 minutes spent on the discharge of this patient; 30 of which was spent [id number] with the patient obtaining history and physical and discussing treatment plan. MEKA DAVID [id number]/SOPHIE #: [id number] ARIES
== END 2019-04-14 17:35 | disposition home or self-care (01) ==
LOC: ED 19:50 → MEDTELE 21:40
PROVIDERS: ADMIT Internal Medicine; ATTEND Internal Medicine
DX: R07.9 Chest pain, unspecified (principal); I47.2 Ventricular tachycardia; I69.354 Hemiplegia and hemiparesis following cerebral infarction affecting left non-dominant side; R79.89 Other specified abnormal findings of blood chemistry; I10 Essential (primary) hypertension; R06.02 Shortness of breath; E78.5 Hyperlipidemia, unspecified; I73.9 Peripheral vascular disease, unspecified; Z79.82 Long term (current) use of aspirin; Z79.899 Other long term (current) drug therapy; Z86.79 Personal history of other diseases of the circulatory system; Z88.6 Allergy status to analgesic agent; Z95.810 Presence of automatic (implantable) cardiac defibrillator; Z87.891 Personal history of nicotine dependence
CPT/HCPCS: 36415; 71046; 78452; 80053; 80061; 83036; 83880; 84484; 85025; 85610; 93005; 93017; 93306; 96372; 99284; A9270-GY; A9502; G0378; J1650; J2785

== ENCOUNTER 2020-10-25 18:01 | Observation (INO) ==
[2020-10-25 18:34] LABS: ABS Eosinophils 0.2 10^3/ul (0-0.6); ABS Lymphocytes 2.4 10^3/ul (1.0-4.8); ABS Monocytes 0.6 10^3/ul (0-0.8); ABS Neutrophils 4.2 10^3/ul (1.5-7.7); Eosinophil % 2.3 %; Hematocrit 36 % (35-47); Hemoglobin 12.7 g/dL (12.0-16.0); Lymphocyte % 32.2 %; Mean Corpuscular HGB Conc 35 g/dL (31-36); Mean Corpuscular Hemoglobin 30 pg (27-31); Mean Corpuscular Volume 86 fL (80-97); Mean Platelet Volume 8.2 fL (7.4-10.4); Platelet Count 233 10^3/uL (150-450); Red Blood Count 4.23 10^6 /uL (3.70-4.87); Red Cell Distribution Width 13 % (10-15); White Blood Count 7.3 10^3/uL (3.5-10.8)
[2020-10-25 19:13] LABS: Albumin 3.5 g/dL (3.2-5.2); Albumin/Globulin Ratio 1.5 (1-3); Calcium 8.4 mg/dL (8.6-10.3); EGFR Non-African American 97.5 (>60); Globulin 2.4 g/dL (2-4); Potassium 3.7 mmol/L (3.5-5.0); Total Bilirubin 0.6 mg/dL (0.2-1.0); Total Protein 5.9 g/dL (6.4-8.9)
[2020-10-25] MEDS: Heparin 5000 UNITS/ML 1 mL VIAL SUBCUT SCH (22:41)
[2020-10-26] MEDS ORDERED: Al Hydrox/Mg Hydrox/Simet LIQ 30 ML UDC PO PRN (03:10)
[2020-10-26] MEDS: Heparin 5000 UNITS/ML 1 mL VIAL SUBCUT SCH (04:51)
[2020-10-26] MEDS ORDERED: Regadenoson 0.4 MG/5 ML SYRINGE ONE (08:53)
[2020-10-26 11:03] LABS: Hepatitis C Antibody Negative (Negative)
[2020-10-26 11:05] VITALS: BP 131/75
== END 2020-10-26 12:55 | disposition home or self-care (01) ==
LOC: ED 18:01 → MEDTELE 18:01
PROVIDERS: ADMIT Internal Medicine; ATTEND Internal Medicine